=== PATIENT | male | born 1985 | race Caucasian/White ===

== ENCOUNTER 2016-07-29 14:34 | Emergency (ER) | payer MEDICAID ==
[~2016-07-29] VITALS: Ht 190.5 cm; Wt 129.0 kg
[2016-07-29] MEDS ORDERED: BACITRACIN OINTMENT 0.9 GM PACKET TOP ONE (15:00)
[2016-07-29] MEDS ORDERED: TETANUS, DIPTHERIA, PERTUSSIS (ADACELL) VACCINE 0.5 ML VIAL IM ONE (15:10)
[2016-07-29 21:07] VITALS: BP 155/98
== END 2016-07-29 15:37 | disposition home or self-care (01) ==
LOC: ED 14:41
DX: S90.822A Blister (nonthermal), left foot, initial encounter (principal); L08.89 Other specified local infections of the skin and subcutaneous tissue; B95.61 Methicillin susceptible Staphylococcus aureus infection as the cause of diseases classified elsewhere; B35.3 Tinea pedis
CPT/HCPCS: 10060; 87070; 87075; 90471; 90715; 99283; A9270; 87147; 87186